=== PATIENT | female | born 1995 | race Caucasian/White ===

== ENCOUNTER 2020-04-26 18:59 | Outpatient (CLI) | payer OTHER ==
[~2020-04-26] VITALS: Ht 162.6 cm; Wt 83.6 kg
[2020-04-26 19:10] VITALS: BP 116/57
== END 2020-04-26 20:45 | disposition home or self-care (01) ==
LOC: LDOP 18:59
PROVIDERS: ATTEND Obstetrics & Gynecology
DX: O42.113 Preterm premature rupture of membranes, onset of labor more than 24 hours following rupture, third trimester (principal); Z3A.27 27 weeks gestation of pregnancy
CPT/HCPCS: 59025; 84112